=== PATIENT | male | born 1955 | race African-American/Black ===

== ENCOUNTER 2019-12-23 07:25 | Emergency (ER) | payer MEDICARE, MEDICAID ==
[~2019-12-23] VITALS: Ht 175.3 cm; Wt 104.0 kg
[2019-12-23] MEDS ORDERED: ALBUTEROL (0.083%) 2.5MG/3ML NEB HHN STA (08:14)
[2019-12-23] MEDS ORDERED: IPRATROPIUM BROMIDE (0.02%) 0.5MG/2.5ML NEB HHN STA (08:14)
[2019-12-23] MEDS ORDERED: DEXAMETHASONE 10 MG/ML VIAL IM ONE (08:15)
[2019-12-23 10:25] VITALS: BP 163/90
== END 2019-12-23 10:58 | disposition home or self-care (01) ==
LOC: ER 07:25
DX: J45.901 Unspecified asthma with (acute) exacerbation (principal); I10 Essential (primary) hypertension
CPT/HCPCS: 93005; 94640; 96372; 99285; J1100